=== PATIENT | female | born 1990 | race Caucasian/White ===

== ENCOUNTER 2022-03-17 09:22 | Outpatient (REF) | payer OTHER, SELFPAY ==
--- NOTE | ~2022-03-17 | XR_ITS ---
EXAMINATION: XR CHEST CLINICAL INFORMATION: Obesity COMPARISON: None TECHNIQUE: 2 views of the chest were obtained. FINDINGS: The cardiac and mediastinal contours are normal. The lungs are clear. There is no pleural effusion or pneumothorax. There are degenerative changes of the spine. XR/XR chest 2V IMPRESSION: No evidence for acute disease in the chest.
--- NOTE | 2022-03-17 09:29 | ECG_ITS ---
Test Reason : morbid obesity Blood Pressure : / mmHG Vent. Rate : 076 BPM Atrial Rate : 076 BPM P-R Int : 146 ms QRS Dur : 104 ms QT Int : 392 ms P-R-T Axes : 029 -04 022 degrees QTc Int : 441 ms Normal sinus rhythm Incomplete right bundle branch block Borderline ECG No previous ECGs available Referred By: Huy Crump Electronically Signed By:Fredy Dinh
[2022-03-17 09:50] LABS: MANUAL DIFF FLAG NO
[2022-03-17 10:29] LABS: Basophils Absolute Auto 0.1 X10*3/uL (0.0-0.2); Basophils Percent Auto 0.6 % (0-2); Eosinophils Absolute Auto 0.2 X10*3/uL (0.0-0.4); Eosinophils Percent Auto 2.4 % (0-4); Hematocrit 39.7 % (37.0-47.0); Hemoglobin 13.2 g/dl (12.0-16.0); Imm Gran Abs Auto 0.03 X10*3/uL (0.00-0.03); Imm Gran Pct Auto 0.4 % (0.0-0.4); Lymphocytes Absolute Auto 2.3 X10*3/uL (1.2-4.9); Mean Corpuscular HGB Conc 33.2 g/dl (31.0-35.0); Mean Corpuscular Hemoglobin 30.3 pg (27.0-33.0); Mean Corpuscular Volume 91.3 fL (80.0-98.0); Mean Platelet Volume 11.2 fL (9.4-12.3); Monocytes Absolute Auto 0.5 X10*3/uL (0.1-1.2); Monocytes Percent Auto 6.5 % (2-11); Neutrophils Percent Auto 62.1 % (45-73); Platelet Count 243 X10*3/uL (160-400); Red Blood Count 4.35 X10*6/uL (4.20-5.50); Red Cell Distribution Width 11.6 % (11.0-16.0)
[2022-03-17 10:37] LABS: Estimated Average Glucose 100 mg/dL; Hemoglobin A1c % 5.1 %
[2022-03-17 12:28] LABS: Folate 9.2 ng/mL (> or = 4.0); Vitamin B12 413 pg/mL (200-900)
[2022-03-17 12:42] LABS: Alanine Aminotransferase 32 U/L (0-31); Albumin Level 4.2 g/dL (3.5-5.0); Alkaline Phosphatase 56 U/L (39-117); Aspartate Amino Transferase 25 U/L (5-31); Bilirubin Total 0.5 mg/dL (0.0-1.0); Blood Urea Nitrogen 15 mg/dL (9-16); C Reactive Protein 0.31 mg/dL (< or = 0.50); Calcium 8.8 mg/dL (8.4-10.2); Cholesterol 147 mg/dL; Estimated Glomerular Filt Rate > 60; Ferritin 138 ng/mL (10-122); Glucose Random 87 mg/dL (60-115); HDL Cholesterol 49 mg/dL; Insulin 14 uU/mL (2-29); Iron 96 mcg/dL (30-160); LDL Cholesterol Calculated 83 mg/dl; Percent Iron Saturation 33 % (15-50); TSH reflex Free T4 1.01 uIU/mL (0.32-4.0); Total Iron Binding Capacity 290 mcg/dL (228-428); Total Protein 7.2 g/dL (6.5-8.0); Triglycerides 75 mg/dL; Unsaturated Iron Binding 194 ug/dL; Vitamin D 25-OH Total 27.2 ng/mL (>30)
[2022-03-17 13:24] LABS: Anion Gap 15 (12-20); Carbon Dioxide 25 mmol/L (22-29); Chloride 104 mmol/L (96-108); Potassium 4.6 mmol/L (3.3-5.1); Sodium 139 mmol/L (135-145)
[2022-03-19 15:39] LABS: PTHI 100 pg/mL (16-77)
[2022-03-22 15:59] LABS: Vitamin A 54 mcg/dL (38-98); Vitamin B1 15 nmol/L (8-30)
[2022-03-22 17:53] LABS: Zinc 83 mcg/dL (60-130)
== END 2022-03-17 09:23 | disposition home or self-care (01) ==
LOC: HO.LAB 09:22
PROVIDERS: PCP Internal Medicine; Visit Provider Surgery
DX: E66.01 Morbid (severe) obesity due to excess calories (principal)
CPT/HCPCS: 36415; 71046; 80053; 80061; 82306; 82607; 82728; 82746; 83036; 83525; 83540; 83970; 84425; 84443; 84590; 84630; 85025; 86140; 93005

== ENCOUNTER 2022-03-31 10:20 | Outpatient (REF) | payer OTHER, SELFPAY ==
[2022-03-31 14:11] LABS: H Pylori Breath Test Negative (Negative)
== END 2022-03-31 10:21 | disposition home or self-care (01) ==
LOC: HO.LNP 10:20
PROVIDERS: Visit Provider Surgery
DX: E66.01 Morbid (severe) obesity due to excess calories (principal)
CPT/HCPCS: 83013

== ENCOUNTER → 2022-04-06 07:55 | Outpatient (REF) | payer OTHER, SELFPAY ==
--- NOTE | 2022-04-06 08:00 | CA_ITS ---
Acquisition Time: 2022-04-06 08:12:11 Total Exercise Time: 00:07:39 Test Indications: ABN EKG Medications: SEE CHART Protocol: WANDA Max HR: 171 BPM 90% of Pred: 189 BPM Max BP: 166/070 mmHG Max Work Load: 9.5 METS Exercise stress test withexercise 7 min 39 sec of Wanda protocol, achieving 90% MPHR, 9.5 METs, with mild sob, no chest discomfort, without arrythmia, with normotensive response to exercise, without EKG changes meeting criteria for ischemia. Test reviewed with Dr Dinh. Referred By: Huy Crump Overread By: JANNETH MONTES
== END ==
LOC: HO.CARD 07:55
PROVIDERS: PCP Internal Medicine; Visit Provider Surgery
DX: Z01.818 Encounter for other preprocedural examination (principal); R06.02 Shortness of breath; R94.31 Abnormal electrocardiogram [ECG] [EKG]
CPT/HCPCS: 93017

== ENCOUNTER → 2022-04-13 15:32 | Outpatient (BNVA) | payer OTHER, SELFPAY | PROVIDERS: PCP Internal Medicine; Visit Provider Counselor Mental Health | DX: F50.81 Binge eating disorder (principal); E66.01 Morbid (severe) obesity due to excess calories | CPT/HCPCS: 90791 ==

== ENCOUNTER → 2022-04-14 09:23 | Outpatient (BNVA) | payer OTHER, SELFPAY | PROVIDERS: PCP Internal Medicine; Visit Provider Dietitian, Registered | DX: E66.01 Morbid (severe) obesity due to excess calories (principal) | CPT/HCPCS: 97802 ==

== ENCOUNTER 2022-04-28 07:52 | Outpatient (REF) | payer OTHER, SELFPAY ==
--- NOTE | ~2022-04-28 | US_ITS ---
EXAMINATION: US COMPLETE ABDOMEN WITH LIVER ELASTOGRAPHY CLINICAL INFORMATION: Obesity. COMPARISON: None. TECHNIQUE: Real-time imaging of the abdominal viscera. Noninvasive ultrasound liver fibrosis assessment is performed using Selene ElastPQ point quantification shear wave elastography (2D-SWE) with a C5-2 MHz transducer. Multiple elastography samples are obtained. Imaging is technically limited. FINDINGS: PANCREAS: Largely obscured by overlapping bowel gas. ABDOMINAL AORTA: The proximal, middle, and distal aortic segments are normal in caliber. INFERIOR VENA CAVA: Visualized portions are normal. LIVER: Normal. The liver demonstrates normal size, contour and echogenicity. No focal lesion or intrahepatic biliary duct dilatation. The right lobe measures 14.9 cm in length. The left lobe measures 10.9 cm in length. Portal flow is towards the liver (hepatopetal). Shear wave liver elastography median stiffness is 1.25 m/s (reference: normal median stiffness is 1.3 m/s or less). IQR/median stiffness to assess sampling precision is 0.24 (reference: good quality data set is IQR/median stiffness of 0.15 or less). GALLBLADDER: Normal. The gallbladder is physiologically distended without evidence of stones, sludge, polyps, wall thickening or pericholecystic fluid. COMMON BILE DUCT: Normal in caliber measuring 0.3 cm in diameter. RIGHT KIDNEY: Normal. No hydronephrosis. No renal calculi or focal parenchymal lesions. The kidney measures 9.8 cm in maximum dimension. LEFT KIDNEY: Normal. No hydronephrosis. No renal calculi or focal parenchymal lesions. The kidney measures 11.0 cm in maximum dimension. SPLEEN: Normal. The spleen measures 11.9 cm in maximum dimension. FREE FLUID: None. US/US abdomen comp w elastography IMPRESSION: 1. Liver elastography: Although measurements suggest a high probability of normal liver stiffness, there is statistical variability of the sampling which decreases accuracy. 2. Technically limited ultrasound examination of the pancreas. REFERENCE: Society of Radiologists in Ultrasound Liver Stiffness Thresholds (2020): LIVER STIFFNESS THRESHOLDS: *Liver Stiffness equal or less than 1.3 m/s: High probability of being normal. *Liver Stiffness less than 1.7 m/s: In the absence of other known clinical signs, rules out compensated advanced chronic liver disease. *Liver Stiffness 1.7-2.1 m/s: Suggestive of compensated advanced chronic liver disease but need further test for confirmation. *Liver Stiffness over 2.1 m/s: Rules in compensated advanced chronic liver disease. *Liver Stiffness over 2.4 m/s: Suggestive of clinically significant portal hypertension. QUALITY OF DATA SET: *IQR/Median value equal or less than 0.15 implies a quality data set. *IQR/Median value over 0.15 implies a poor quality data set. SIGNIFICANT CHANGE FROM PRIOR EXAM: Significant change if liver stiffness measurement is 10% or greater from prior exam. OTHER CONSIDERATIONS: The stage of liver fibrosis may be overestimated in the setting of acute hepatitis, liver inflammation, elevated liver function tests, hepatic vascular congestion, obstructive cholestasis, non-fasting state, and infiltrative diseases such as amyloidosis and lymphoma. In some patients with NAFLD, the liver stiffness thresholds for compensated advanced chronic liver disease may be lower. In causes other than viral hepatitis and NAFLD, liver stiffness thresholds are not well established.
== END 2022-04-28 07:53 | disposition home or self-care (01) ==
LOC: HO.US 07:52
PROVIDERS: Visit Provider Surgery
DX: E66.01 Morbid (severe) obesity due to excess calories (principal)
CPT/HCPCS: 76705; 76981

== ENCOUNTER 2022-05-11 08:24 | Outpatient (REF) | payer OTHER, SELFPAY ==
--- NOTE | ~2022-05-11 | FL_ITS ---
EXAMINATION: XR FLUOROSCOPY UPPER GI WITH AIR CLINICAL INFORMATION: Morbid obesity due to excess calories COMPARISON: None TECHNIQUE: Fluoroscopic assessment of the upper GI tract was performed in various upright and supine/prone obliquities utilizing thin and thick high density barium contrast material and effervescent granules. FINDINGS: The esophagus was normal in course, caliber, and contour. There was normal distensibility with no fixed segment of narrowing. No focal mucosal abnormality was identified. No significant esophageal dysmotility was observed. Contrast passed freely across the gastroesophageal junction into the stomach. No significant hiatal hernia. There was normal distensibility of the stomach with no focal abnormality identified. There was prompt gastric emptying into the duodenum which demonstrated a normal appearance. No gastroesophageal reflux was observed. FLUOROSCOPY TIME: 1.1 minutes DOSE AREA PRODUCT: 22.970 Gy-cm2 (del cid-centimeter squared) FL/FL upper GI w air IMPRESSION: Normal upper GI examination.
== END 2022-05-11 08:25 | disposition home or self-care (01) ==
LOC: HO.XRAY 08:24
PROVIDERS: Visit Provider Surgery
DX: E66.01 Morbid (severe) obesity due to excess calories (principal)
CPT/HCPCS: 74246

== ENCOUNTER → 2022-05-17 08:11 | Outpatient (BNVA) | payer OTHER, SELFPAY | PROVIDERS: PCP Internal Medicine; Visit Provider Surgery | DX: Z13.89 Encounter for screening for other disorder (principal) ==

== ENCOUNTER → 2022-05-19 12:53 | Outpatient (BNVA) | payer OTHER, SELFPAY | PROVIDERS: PCP Internal Medicine; Visit Provider Surgery | DX: Z13.89 Encounter for screening for other disorder (principal) ==

== ENCOUNTER → 2022-05-31 13:09 | Outpatient (BNVA) | payer OTHER, SELFPAY | PROVIDERS: PCP Internal Medicine; Visit Provider Physician Assistant Surgical | DX: Z13.89 Encounter for screening for other disorder (principal) ==

== ENCOUNTER 2022-06-01 07:05 | Inpatient (IN) | payer OTHER, SELFPAY ==
[2022-05-18 10:05] VITALS: BMI 42.5
[2022-05-23 08:50] LABS: MANUAL DIFF FLAG NO
[2022-05-23 09:34] LABS: Basophils Absolute Auto 0.1 X10*3/uL (0.0-0.2); Eosinophils Absolute Auto 0.1 X10*3/uL (0.0-0.4); Eosinophils Percent Auto 1.7 % (0-4); Hematocrit 39.4 % (37.0-47.0); Hemoglobin 13.5 g/dl (12.0-16.0); Imm Gran Abs Auto 0.02 X10*3/uL (0.00-0.03); Imm Gran Pct Auto 0.4 % (0.0-0.4); Lymphocytes Absolute Auto 1.3 X10*3/uL (1.2-4.9); Lymphocytes Percent Auto 25.1 % (20-40); Mean Corpuscular HGB Conc 34.3 g/dl (31.0-35.0); Mean Corpuscular Hemoglobin 31.6 pg (27.0-33.0); Mean Corpuscular Volume 92.3 fL (80.0-98.0); Mean Platelet Volume 12.1 fL (9.4-12.3); Monocytes Absolute Auto 0.5 X10*3/uL (0.1-1.2); Monocytes Percent Auto 8.7 % (2-11); Neutrophils Absolute Auto 3.3 x10*3/uL (2.0-8.3); Neutrophils Percent Auto 63.1 % (45-73); Platelet Count 199 X10*3/uL (160-400); Red Blood Count 4.27 X10*6/uL (4.20-5.50); Red Cell Distribution Width 12.7 % (11.0-16.0); White Blood Count 5.2 X10*3/uL (4.8-10.8)
[2022-05-23 09:40] LABS: Prothrombin Time 11.9 SEC (10.0-13.1)
[2022-05-23 09:43] LABS: Partial Thromboplastin Time 30.8 SEC (26.0-36.4)
[2022-05-23 10:18] LABS: Estimated Average Glucose 88 mg/dL; Hemoglobin A1c % 4.7 %
[2022-05-23 10:48] LABS: Alanine Aminotransferase 42 U/L (0-31); Albumin Level 4.3 g/dL (3.5-5.0); Alkaline Phosphatase 45 U/L (39-117); Anion Gap 20 (12-20); Aspartate Amino Transferase 31 U/L (5-31); Bilirubin Total 1.1 mg/dL (0.0-1.0); Blood Urea Nitrogen 14 mg/dL (9-16); C Reactive Protein 0.58 mg/dL (< or = 0.50); Calcium 9.5 mg/dL (8.4-10.2); Carbon Dioxide 20 mmol/L (22-29); Chloride 106 mmol/L (96-108); Cholesterol 141 mg/dL; Estimated Glomerular Filt Rate > 60; Glucose Random 80 mg/dL (60-115); HDL Cholesterol 39 mg/dL; LDL Cholesterol Calculated 89 mg/dl; Potassium 5.1 mmol/L (3.3-5.1); Sodium 141 mmol/L (135-145); Total Protein 7.2 g/dL (6.5-8.0); Triglycerides 65 mg/dL
[2022-05-23 11:00] LABS: Insulin 6 uU/mL (2-29)
--- NOTE | 2022-05-26 23:06 | MHC.SHP ---
Pre-Procedural Eval Section A Date of Service: 05/26/22 The patient is an INPATIENT: Yes The History & Physical has been completed within 30 days and I have reviewed it.: Yes Section B Chief Complaint: morbid obesity Relevant Family History (Specify if Yes): No Relevant Social History: None Present Medications: None Medical History: No relevant PMH History of Previous Operations: No relevant previous surgery Allergies: Allergies Allergy/AdvReac Type Severity Reaction Status Date / Time shellfish derived Allergy Mild HIVES Verified 05/18/22 10:11 Review of Systems Sugical H&P ROS: Negative: Constitution, Cardiovascular, Respiratory, Neurological, Psychiatric, Hem-Onc, Allergic/Immunologic, Gastrointestinal, Genitourinary, Musculoskeletal, Integumentary, Endocrine and Eyes/Ears/Nose/Throat Exam Surgical H&P Exam: Normal: HEENT, Normal: Heart, Normal: Lungs, Normal: Extremities, Normal: Abdomen, Normal: Skin and Normal: Neurological Plan Diagnosis/Plan: Unchanged I have reviewed the history and physical and performed a pertinent physical examination on my patient. No changes have occurred unless specified. Time Spent With Patient Time: Total time managing care of this patient today ____ minutes.
[2022-05-31 13:30] LABS: COVID-19 Test Negative (Negative); IDNOW Serial# 9DB6401D
[2022-06-01] VITALS (22 sets, daily range): BP systolic 126–168; BP diastolic 76–89; PULSE 68–92; RESP 16–20; TEMP 36.3–37; O2SAT 93–100
[2022-06-01 07:17] LABS: UPreg QC Valid YES; Urine Pregnancy NEGATIVE (NEGATIVE)
[2022-06-01] MEDS: Lactated Ringers 1,000 ML 999 ML IV (07:45)
--- NOTE | 2022-06-01 07:52 | HO.ANESPROP2 ---
HPI - Anesthesia Eval Consult details Narrative: 31 yo female patient for EGD, Laparoscopic sleeve gastrectomy, possible diaphragmatic hernia repair, possible ventral hernia repair, possible open PMFSH Active Problems Active Problems: All Active Problems (Updated 06/01/22 @ 08:34 by Tara Torres MD) Binge-eating disorder, in partial remission, mild (Acute) Vitamin B12 deficiency (Acute) Vitamin D deficiency (Acute) Arthritis (Acute) Morbid obesity BMI 42.6 Denies SONNY Past Medical History Medical History Arthritis Morbid obesity Family History Family History Mother Diabetes Thyroid disease Father Hypertension Sister Hypertension Thyroid disease PCOS (polycystic ovarian syndrome) Family history of problems with anesthesia: No Surgical History Surgical History No pertinent past surgical history History of Problems with Anesthesia: No Social History Social History Are you a primary resident care manager rn to a significant other at home: No Do you presently have visiting nurse or other home services: No Alcohol intake: current Alcohol intake frequency: holidays/special occasions only Patient Tobacco Use Status: Never used Tobacco Second Hand Smoke Exposure: No Use of substances other than those prescribed or required for medical reasons: No Have you been hit, kicked, punched, or otherwise hurt by someone within the past year? If so, by whom?: No Are you DNR?: No Advance Directives: No Advance Directives Information Provided: Yes (Info mailed w/ pre-op instructions) Advance Directives on File: No Recently lost weight without trying: No How much weight loss: 34pounds or more Eating poorly because of decreased appetite: No Nutrition screen score: 4 Nutrition Risks: No Nutritional Risk Patient : No FDLMP: none : No Poor oral hygiene: No Meds Allergies Allergy/AdvReac Type Severity Reaction Status Date / Time shellfish derived Allergy Mild HIVES Verified 06/01/22 07:18 Active Medications: Current Medications Lactated Ringer's (Lr) 1,000 mls @ 999 mls/hr IV .Q1H1M JOSE M Stop: 06/01/22 09:15 Last Admin: 06/01/22 07:45 Dose: 999 mls/hr Home Medications Medication Instructions Recorded Confirmed Last Taken Type IUD 1 dose vaginal USEASDIRECTD 03/14/22 06/01/22 Unknown History multivitamin 1 tab PO DAILY 05/31/22 06/01/22 05/31/22 History Exam Exam Date and Time: June 01, 2022 0752 Height,Weight and Vital Signs: Height 5 ft 7 in Weight 123.377 kg Last Vital Signs Temp 98.0 F 06/01/22 07:15 Pulse 68 06/01/22 07:15 Resp 16 06/01/22 07:15 BP 145/83 H 06/01/22 07:15 Pulse Ox 99 06/01/22 07:15 O2 Del Method 06/01/22 07:15 Pertinent Lab Results Pertinent Lab Results: Laboratory Tests 05/23/22 05/23/22 05/23/22 08:42 08:48 08:48 WBC 5.2 RBC 4.27 Hgb 13.5 Hct 39.4 MCV 92.3 MCH 31.6 MCHC 34.3 RDW 12.7 Plt Count 199 MPV 12.1 Immature Gran % (Auto) 0.4 Neut % (Auto) 63.1 Lymph % (Auto) 25.1 [place] % (Auto) 8.7 Eos % (Auto) 1.7 Baso % (Auto) 1.0 Lymph # (Auto) 1.3 [place] # (Auto) 0.5 Eos # (Auto) 0.1 Baso # (Auto) 0.1 Abs Immat Gran (auto) 0.02 Absolute Neuts (auto) 3.3 Absolute Nucleated RBC 0.000 Nucleated RBC % (auto) 0.0 PT 11.9 INR 1.0 APTT 30.8 Sodium Potassium Chloride Carbon Dioxide Anion Gap BUN Creatinine Estim Creat Clear Calc Estimated GFR Random Glucose Estimat Average Glucose Hemoglobin A1c % Insulin Level Calcium Total Bilirubin AST ALT Alkaline Phosphatase C-Reactive Protein Total Protein Albumin Triglycerides Cholesterol LDL Cholesterol, Calc HDL Cholesterol TSH Urine Test COVID-19 (KATIE) COVID-19 Clin Com Blood Type B Positive Antibody Screen NEGATIVE 05/23/22 05/23/22 05/31/22 08:48 08:48 13:00 WBC RBC Hgb Hct MCV MCH MCHC RDW Plt Count MPV Immature Gran % (Auto) Neut % (Auto) Lymph % (Auto) [place] % (Auto) Eos % (Auto) Baso % (Auto) Lymph # (Auto) [place] # (Auto) Eos # (Auto) Baso # (Auto) Abs Immat Gran (auto) Absolute Neuts (auto) Absolute Nucleated RBC Nucleated RBC % (auto) PT INR APTT Sodium 141 Potassium 5.1 Chloride 106 Carbon Dioxide 20 L Anion Gap 20 BUN 14 Creatinine 0.74 Estim Creat Clear Calc 150.0 Estimated GFR > 60 Random Glucose 80 Estimat Average Glucose 88 Hemoglobin A1c % 4.7 Insulin Level 6 Calcium 9.5 D Total Bilirubin 1.1 H AST 31 ALT 42 H Alkaline Phosphatase 45 C-Reactive Protein 0.58 H Total Protein 7.2 Albumin 4.3 Triglycerides 65 Cholesterol 141 LDL Cholesterol, Calc 89 HDL Cholesterol 39 TSH 1.60 Urine Test COVID-19 (KATIE) Negative [facility] See Note Blood Type Antibody Screen 06/01/22 07:05 WBC RBC Hgb Hct MCV MCH MCHC RDW Plt Count MPV Immature Gran % (Auto) Neut % (Auto) Lymph % (Auto) [place] % (Auto) Eos % (Auto) Baso % (Auto) Lymph # (Auto) [place] # (Auto) Eos # (Auto) Baso # (Auto) Abs Immat Gran (auto) Absolute Neuts (auto) Absolute Nucleated RBC Nucleated RBC % (auto) PT INR APTT Sodium Potassium Chloride Carbon Dioxide Anion Gap BUN Creatinine Estim Creat Clear Calc Estimated GFR Random Glucose Estimat Average Glucose Hemoglobin A1c % Insulin Level Calcium Total Bilirubin AST ALT Alkaline Phosphatase C-Reactive Protein Total Protein Albumin Triglycerides Cholesterol LDL Cholesterol, Calc HDL Cholesterol TSH Urine Test NEGATIVE COVID-19 (KATIE) COVID-[place] REO Blood Type Antibody Screen Airway Mallampati Class: II TM Dist: >3cm Neck ROM: Full Loose/Missing/Broken Teeth: Yes (Missing 1 tooth top left back) Heart: RRR Lungs: CTAB Assessment and Plan Assessment Anesthesia Assessment: Anesthesia Plan Discussed and Chart Reviewed Final Anesthetic Review Family History of Problems with Anesthesia: No History of Problems with Anesthesia: No NPO: Yes ASA Class: III Final Preanesthetic Review: No Changes in Pt Med Stat, Meds/Allgs Chart Reviewed, Consent Obtained/Reviewed and Anes Risks/Benef Reviewed Patient Risk: Intermediate Procedure Risk: Intermediate Assessment/Block/Sedation in SS: Assess/Block/Sedation-SS Anesthetic Plan Anesthetic Plan: GA Disposition: Standard PACU and Inp. Admit - Standard Bed
[2022-06-01] MEDS: Lactated Ringers 1,000 ML 100 ML IVCONT ×3 (08:12→21:34)
--- NOTE | 2022-06-01 09:18 | PM.OP ---
Brief Operative Note Date of Service: 06/01/22 Pre-op diagnosis: morbid obesity with comorbidities (see below) Post-op diagnosis: same Procedure: INITIAL PATIENT BMI ON PRESENTATION AT OUR OFFICE: 48.4 kg/m2 LAST BMI BEFORE SURGERY: 42.1 kg/m2 COMORBIDITIES: DJD ?The patient presented to the Weight Management Program with significant obesity that was negatively impacting the patient's comorbidities as listed above.? The program is a phased program with a special focus on preoperative medical weight management to promote substantial weight loss and prepare the patients for the second phase of the program: bariatric surgery. The patient participated in an intensive weekly lifestyle ?intervention and exercise program during which the patient ?has lost between the initial office visit and the last preoperative visit 40.4 lbs, or 13.07% of initial actual body weight. It was deemed appropriate for the patient to now have bariatric surgery. In light of the current Covid-19 pandemic and the well documented strong association of obesity and increased risk of worse outcomes if infected with Covid-19 (REFERENCES:https://pubmed.ncbi.nlm.nih.gov/67819438/,?https://pubmed.ncbi.nlm.nih.gov/76132843/), any delay in undergoing bariatric surgery may lead to the patient's worsening health condition and increased?risk of more severe Covid-19 disease if infected. In addition a recent?study from [facility] published in [employer] on 04/11/2021 ([email or web address]) found that, among patients with obesity, substantial weight loss achieved with surgery was associated with improved outcomes of COVID-19 infection. The findings suggest that obesity can be a modifiable risk factor for the severity of COVID-19 infection. In addition, the patient met the BMI-criteria for bariatric surgery based on the BMI on initial presentation. The patient should not be penalized for achieving such weight loss because ?it is not sustainable long-term without surgical intervention and it was achieved in preparation for bariatric surgery ?under my direction and based on my published research ([email or web address] and?https://www.soard.org/article/[email or web address](49)14013-X/pdf) ?that a 10% preoperative weight loss improves long-term weight loss after surgery and reduces perioperative complications.? Insurance carriers such as [facility] have endorsed my recommendations ?and have included in their policies criteria to include a 10% preoperative weight loss requirement. PROCEDURE: Esophago-gastroscopy, laparoscopic lysis of adhesions, laparoscopic sleeve gastrectomy and laparoscopic gastropexy INDICATIONS: This is a 31 year-old female who was electively scheduled for laparoscopic, possibly open sleeve gastrectomy. The risks and complications of the procedure were discussed with the patient in advance, particularly the possibility of ; pulmonary embolism; staple line leak; bleeding; GERD; cardiac, pulmonary, or renal complications; as well as long-term problems such as insufficient weight loss, vitamin deficiency, strictures, or ulcers. The patient understood all the risks, and was in agreement to proceed with surgery. DESCRIPTION OF PROCEDURE: After informed consent was obtained from the patient, the patient was given preoperative antibiotics, and was transferred to the operating room. After successful induction of general anesthesia, pneumatic compression devices were placed on both lower extremities. An upper endoscopy was performed next. The oropharynx and esophagus appeared to be within normal limits. There was no diaphragmatic hernia present consistent with the findings of the preoperative upper GI. The stomach was entered. Then after all fluid and air were suctioned and the stomach was fully decompressed, the scope was withdrawn and secured in the mid esophagus. The patient was then prepped and draped in the usual sterile manner, and abdominal access was established at the right upper quadrant with the Beny technique. A 12 mm blunt port was inserted, and the abdomen was insufflated with CO2 to a pressure of 15 mmHg. Under direct visualization, additional ports were placed, specifically two 5 mm Versi-step ports to the left upper quadrant, and a 5 mm Versi-Step port to the right upper quadrant. 1% lidocaine plain was used to infiltrate all port sites as well as all fascia defects. Using the EndoClose suture passer device, I placed a #1 Polysorb tie across the falciform ligament in order to retract it up against the abdominal wall and prevent injury of the ligament with our instruments during the procedure. Following that, the patient was placed in a steep reverse Trendelenburg position. An additional 5 mm port was placed to the right flank for the Mediflex retractor that was used to retract the left lobe of the liver. The gastro-esophageal fat pad was opened with the ultrasonic device (Thunderbeat, Olympus) and the anterior esophagus and hiatus were exposed. The angle of His was opened with the ultrasonic device the fundus of the stomach from any diaphragmatic and splenic attachments. I then opened the gastrocolic ligament between the transverse colon and the greater curvature of the stomach with the ultrasonic device to enter the lesser sac and facilitate the ligation of the short gastric vessels. I started at a mid-point along the greater curvature and using the Thunderbeat, all short gastric vessels were divided all the way to the angle of His until the left louisa was completely dissected at its entirety. I then divided the gastro-colic ligament distally to a distance of about 3-4 cm proximal to the pylorus. There were extensive congenital adhesions between the pancreas and posterior gastric wall. Those were lysed completely with the ultrasonic device. Adhesiolysis took approximately 45 min to complete. The stomach was then divided transversely with one Endo HIEN-45 purple, one HIEN-45 orange load and four HIEN-60 articulating orange loads using the AEON stapler and loads. Every effort was made that the gastric sleeve had a tubular shape and an even caliber throughout. Once the sleeve resection was completed, the staple line of the gastric sleeve was reinforced with Hemoclips. The resected stomach was retrieved without difficulty from the Beny port. A gastropexy was then performed in order to prevent postoperative GERD and partial gastric volvulus. Several interrupted 2.0 Surgidac sutures were placed between the sleeve's staple line and the previously divided greater omentum and gastro-colic ligament using the Endo-Stitch device. ?An upper endoscopy was performed. There was no narrowing at the GE junction. The scope was easily advanced all the way to the pylorus which was clearly visualized. There was no narrowing anywhere and the sleeve's caliber was even throughout. The sleeve's staple line was inspected and there was no evidence of ischemia, bleeding or dehiscence. At that point the gastroscope was withdrawn from the patient?s mouth while we were decompressing the bowel and the stomach from any remaining air. I looked into the lesser sac to see how the sleeve was situating and it was situating well. There was no bleeding from the staple line, spleen, or short gastric vessels. The Mediflex retractor was removed, and the undersurface of the liver was inspected and there was no bleeding. The patient was placed in supine position. I closed the fascial defect of the 12 mm port site with a figure of eight #1 Polysorb suture. Then 30cc of Ropivacaine plain with 10 mg of Dexamethasone were used to infiltrate the fascial closure as well as all skin incisions. A total of 7ml Zynrelef wasapplied in the Beny wound. At this point, the abdomen was deflated, all ports were removed under direct vision, and no bleeding was noted from any of the port sites. The skin incisions were irrigated with saline and were closed with 4-0 absorbable monofilament sutures. Steri-Strips and OpSites were used to cover all incisions. The patient was extubated and was transferred in stable condition to the recovery room for further care. I was present and performed all shelton parts of the procedure. Ms. Ma was the finance assistant. There were no residents to assist with this case. Malvin Crump MD, PhD, FACS Surgeon: Huy Crump MD Anesthesia: GETA, local and other (TAP block and 7ml Zynrelef) Was an Shoe Lining Fitter used for this Procedure?: No Shoe Lining Fitter: Yolanda Ma Estimated blood loss (mL): 10 IV fluids (mL): 2,500 Urine output (mL): 0 (No Brannon to record output) Pathology: other (Stomach) Condition: stable Disposition: PACU
--- NOTE | 2022-06-01 09:21 | PM.PNGS ---
Subjective Subjective Date of Service: 06/02/22 Interval history: Patient has mild incisional pain, but was able to ambulate and use the incentive spirometer. She is tolerating phase 1 bariatric diet Physical Exam Vital Signs: Vital Signs: Last Vital Signs Temp 98.0 F 06/01/22 07:15 Pulse 68 06/01/22 07:15 Resp 16 06/01/22 07:15 BP 145/83 H 06/01/22 07:15 Pulse Ox 99 06/01/22 07:15 O2 Del Method 06/01/22 07:15 BMI result Body Mass Index 42.5 GI: Inspection: Yes normal to inspection, Yes incision (clean, dry and intact) and Yes obesity Palpation (GI): Soft to palpation Extrem: Right lower extremity: normal to inspection (no calf tenderness) Left lower extremity: normal to inspection (no calf tenderness) Objective Data Active Medications Fentanyl (Fentanyl Citrate/Pf 100 Mcg/2 Ml Vial) 25 mcg IVPUSH Q5M PRN; Protocol PRN Reason: Pain, Moderate (Pain Scale 4-6 Hydromorphone HCl (Hydromorphone Hcl 0.5 Mg/0.5 Ml Syringe) 0.25 mg IVPUSH Q5M PRN; Protocol PRN Reason: Pain, Severe (Pain Scale 7-10) Lactated Ringer's (Lr) 1,000 mls @ 100 mls/hr IVCONT .Q10H JOSE M Last Admin: 06/01/22 08:12 Dose: 100 mls/hr Documented By: ANN Promethazine HCl 6.25 mg/ (Sodium Chloride) 50.25 mls @ 201 mls/hr IV ONCE PRN PRN Reason: Nausea and Vomiting Ondansetron HCl (Ondansetron Hcl 4 Mg/2 Ml Vial) 4 mg IVPUSH ONCE PRN PRN Reason: Nausea and Vomiting Labs 05/23/22 08:48 05/23/22 08:48 Labs: Laboratory Results - last 24 hr 05/31/22 06/01/22 13:00 07:05 Urine Test NEGATIVE COVID-19 (KATIE) Negative COVID-19 Clin Com See Note Procedures Date of Service Date of Service: 06/02/22 Progress Note: A&P Assessment and plan (1) Morbid obesity: Status: Acute Assessment and Plan: s/p laparoscopic sleeve gastrectomy, lysis of adhesions and gastropexy Doing well Check am labs. If OK, will discharge home? (2) Arthritis: Status: Acute (3) Status post sleeve gastrectomy: Status: Acute Time Spent With Patient Time: Total time managing care of this patient today ____ minutes. Quality Stroke Does the patient have a stroke diagnosis?: No VTE Prior VTE?: No VTE Risk Level:: Surgical - moderate VTE Device Contraindication: N/A - Device Ordered VTE Drug Contraindication: Treatment Not Indicated
[2022-06-01] MEDS: Metoclopramide HCl 10 MG/2 ML VIAL IVPUSH (12:22)
--- NOTE | 2022-06-01 12:22 | P.DS_ITS ---
DS: Providers Provider Date of Service: 06/02/22 Date of admission: 06/01/22 07:05 Primary care physician: Diomedes Stroud MD DS: Diagnosis Discharge Diagnosis (1) Morbid obesity: Status: Acute (2) Arthritis: Status: Acute (3) Status post sleeve gastrectomy: Status: Acute DS: Summary Hospital Course Hospital Course: ADMITTING DIAGNOSIS: morbid obesity,?arthritis DISCHARGE DIAGNOSIS: same, s/p laparoscopic sleeve gastrectomy and gastropexy PAST SURGICAL HISTORY:?n/a PROCEDURE: upper endoscopy, laparoscopic sleeve gastrectomy and repair of diaphragmatic hernia hernia DISCHARGE SUMMARY: History of Present Illness: The patient is a?31 year-old woman with a BMI of? ?48.4 ? kg/m2 and associated co-morbidities as described above. The patient had extensive work-up, lost? ?37 ? lbs preoperatively and was electively scheduled for laparoscopic, possible open sleeve gastrectomy and gastropexy. Risks and complications of the surgery were discussed with the patient in advance, particularly the possibility of , pulmonary embolism, anastomotic leak, bleeding, bowel injury, GERD, cardiac, renal or pulmonary complications. The patient understood all the risks and was in agreement with the surgical plan. Hospital Course: The patient underwent an uneventful laparoscopic sleeve gastrectomy with gastropexy on the day of admission. Postoperatively, the patient was transferred to the surgical floor. The patient received IV Acetaminophen and IV dilaudid for pain control. Patient was started on bariatric phase 1 diet POD #0. On postoperative day one, the patient was feeling well without nausea, vomiting, fevers, or tachycardia. The patient had some mild incisional pain and the abdomen was soft.? On the morning of postoperative day one, the patient was continued on 1 ounce of water or ice every half hour. During the day, the patient did fairly well, having some incisional pain, but able to ambulate adequately and to tolerate liquids well. Since the patient is doing well, we decided that the patient was ready to be discharged. The patient was given instructions to follow-up with me next week and to call my office for any fever over 101, persistent abdominal pain, nausea, vomiting, GERD, symptoms of DVT such as calf tenderness, or leg swelling, or pulmonary embolism such as chest pain or shortness of breath.? The patient was also instructed to drink 40-60 ounces of liquids per day using the 1-ounce cups. The patient had been given prescriptions for Tylenol for pain, Zofran prn for nausea, and pantoprazole and carafate previously. The patient was encouraged to ambulate and use the incentive spirometer. The patient was allowed to shower, but no baths, and encouraged to stay active at home. All of these instructions were given to the patient personally. All questions were answered and the patient understood all instructions, the instructions were also given to the patient in print. Time Spent with Patient Time attestation: Total time managing care of this patient today ____ minutes. Discharge coordination time: Less than 30 minutes Quality: Safe Use of Opioids Does Pt have an Active Cancer Diagnosis on the Problem List?: No Quality: Stroke Does the patient have a stroke diagnosis?: No Physical Exam Vital Signs: Vital Signs: Last Vital Signs Temp 98.0 F 06/01/22 07:15 Pulse 68 06/01/22 07:15 Resp 16 06/01/22 07:15 BP 145/83 H 06/01/22 07:15 Pulse Ox 99 06/01/22 07:15 O2 Del Method 06/01/22 07:15 BMI result Body Mass Index 42.5 DS: Data Data Completed and Pending Pending studies at discharge: Pending at discharge 06/01/22 10:53 Surgical [PTH] Routine Labs on day of discharge: Laboratory Results - last 24 hr 05/31/22 06/01/22 13:00 07:05 Urine Test NEGATIVE COVID-19 (KATIE) Negative COVID-19 Clin Com See Note Discharge Plan Discharge Anticipated Discharge Date/Time: 06/02/22 10:00 Patient Disposition: Home, Self-Care Discharge Diagnosis: s/p laparoscopic sleeve gastrectomy Referrals: Diomedes Stroud MD [Primary Care Provider] - 1 Week Discharge Medications: Continued pantoprazole 40 mg tablet,delayed release (DR/EC) 40 mg PO DAILY Qty: 30 2RF sucralfate 100 mg/mL suspension 10 ml PO BID Qty: 400 2RF ondansetron HCl 4 mg tablet 4 mg PO Q12H Qty: 20 0RF Rx Instructions: Only use if you have nausea as needed IUD 1 dose 1 dose vaginal USEASDIRECTD Discontinued multivitamin 1 tab 1 tab PO DAILY Discharge Orders: Discharge Order (Routine); Ordered 06/02/22 Ordered By: Huy Crump Activity on Discharge: No heavy lifting Stand Alone Forms: Patient Portal Discharge page Care Plan Goals: weightloss Health Concerns: morbid obesity Plan of Treatment: No tub baths, sex or returning to work until discussed at first post op appointment. No alcohol, tobacco or illegal drug use. Continue to use incentive spirometer hourly while awake. Walk in home for 5- 10 minutes every 2 hours during the first week. Wear abdominal binder with activity. Continue phase 1 diet and follow all meal plan instructions from your bariatric surgeon. Review bariatric handbook and call with any questions. Discharge Instructions 1. Please call your doctor or come back to the emergency room should any new symptoms arise. 2. Activity: abstain from alcohol,? limited stair climbing, no bending, no driving, no exercise, no illicit substances, no lifting, no sex, no tub bath, no work. 4. Diet: follow your bariatric surgeons recommendations for advancing diet. 5. Dressing Change/Wound Care: Your incisions are covered with waterproof dressings. You can shower with these and pat dry. Do not rub over dressings or incisions. If the area is tender, you may apply an ice pack for short intervals (no more than 20 minutes on, followed by at least 20 minutes off). Do not apply heat. Do not use creams, lotions, or topical antibiotics unless instructed to do so by your surgeon. 6. Call your doctor if: - Your temperature exceeds 101.5 F - You experience excessive pain or swelling - You have an unexpected reaction to medication - You have excessive bleeding - You experience continued vomiting/nausea - Your incision begins to separate - Your incision shows signs of infection such as increased redness, swelling, excessive pain, heat, or drainage (light blood or clear fluid is normal) General instructions: No lifting greater than 5 lbs for the next 4 weeks[address] within 24 hours of taking narcotic pain medications. If you do not move your bowels in the next 2 days, please take milk of magnesia over the counter. Please follow the post op diet and do not advance your diet until you are seen in the office in about 2 weeks. Please walk around your home every hour or two to prevent blood clots from forming in your legs. You do not need to wake from sleeping to walk. Please sleep in a bed or couch to prevent kinking at the hips and knees. Please take your incentive spirometer (your lung electrical electronics engineers) home with you and use it for the next few days to prevent pneumonias. You may shower, no hot tubs, baths or swimming pools. Please call the office with any questions or concerns such as increasing abdominal pain, fever, chills, shortness of breath, chest pain, leg pain or swelling, or redness or drainage from your incisions. Please make sure you are consuming 40-60 ounces of total fluids per day. Avoid all carbonation. Do not hesitate to contact the office with any questions at . The patient's medical history has been reviewed and they are considered low risk for post op DVT and therefore DVT prophylaxis is not considered necessary. Travel after surgery was reviewed. The patient has not disclosed any travel plans during the first 30 days after surgery and they have been advised that within the first 30 days after surgery any bus, plane, train or car travel over 2 hours in duration is contraindicated due to the possibility of developing blood clots from immobility. Any travel, needs to include periods of ambulation of 10 minutes in duration every 2 hours.? The patient was instructed to discuss any plans for travel during this period with their bariatric surgeon. Assessment: s/p laparoscopic sleeve gastrectomy Discharge Date/Time: 06/02/22 10:28
[2022-06-01] MEDS: Haloperidol Lactate 5 MG/ML VIAL 1 MG IVPUSH (12:52)
[2022-06-01 12:56] LABS: Hematocrit 40.3 % (37.0-47.0); Hemoglobin 13.4 g/dl (12.0-16.0)
[2022-06-01 13:24] LABS: Anion Gap 17 (12-20); Blood Urea Nitrogen 9 mg/dL (9-16); Calcium 8.8 mg/dL (8.4-10.2); Carbon Dioxide 19 mmol/L (22-29); Chloride 109 mmol/L (96-108); Creatinine Clr Calc Pharmacy 137.1; Estimated Glomerular Filt Rate > 60; Glucose Random 142 mg/dL (60-115); Sodium 141 mmol/L (135-145)
[2022-06-01] MEDS: Scopolamine 1.5 MG PATCH.TD.3 EAR-BEHIND (14:42)
[2022-06-01] MEDS: ceFAZolin Sodium/Dextrose,Iso 2 GM/50 ML PIGGYBACK IV (14:56)
[2022-06-01] MEDS: Famotidine/PF 20 MG/2 ML VIAL IVPUSH ×2 (14:57→21:17)
[2022-06-01] MEDS: ondansetron HCL 4 MG/2 ML VIAL IVPUSH (16:45)
[2022-06-01] MEDS: Acetaminophen 1,000 MG/100 ML PIGGYBACK 16.7 MG IV ×2 (16:46→21:16)
[2022-06-01] MEDS: Enalaprilat Dihydrate 1.25 MG/ML VIAL IVPUSH (21:16)
[2022-06-02] MEDS: ondansetron HCL 4 MG/2 ML VIAL IVPUSH ×2 (02:08→08:33)
[2022-06-02 02:15] VITALS: BP 118/56; PULSE 58; RESP 16; TEMP 36.8; O2SAT 97
[2022-06-02] MEDS: Acetaminophen 1,000 MG/100 ML PIGGYBACK 16.7 MG IV (04:06)
[2022-06-02 06:03] LABS: MANUAL DIFF FLAG NO
[2022-06-02 06:09] LABS: Basophils Percent Auto 0.1 % (0-2); Hematocrit 35.4 % (37.0-47.0); Hemoglobin 12.1 g/dl (12.0-16.0); Imm Gran Abs Auto 0.04 X10*3/uL (0.00-0.03); Imm Gran Pct Auto 0.4 % (0.0-0.4); Lymphocytes Absolute Auto 1.2 X10*3/uL (1.2-4.9); Lymphocytes Percent Auto 10.5 % (20-40); Mean Corpuscular HGB Conc 34.2 g/dl (31.0-35.0); Mean Corpuscular Hemoglobin 30.7 pg (27.0-33.0); Mean Corpuscular Volume 89.8 fL (80.0-98.0); Mean Platelet Volume 11.9 fL (9.4-12.3); Monocytes Percent Auto 8.5 % (2-11); Neutrophils Percent Auto 80.5 % (45-73); Platelet Count 154 X10*3/uL (160-400); Red Blood Count 3.94 X10*6/uL (4.20-5.50); Red Cell Distribution Width 12.3 % (11.0-16.0); White Blood Count 11.2 X10*3/uL (4.8-10.8)
[2022-06-02 06:26] LABS: Anion Gap 14 (12-20); Blood Urea Nitrogen 9 mg/dL (9-16); Calcium 8.6 mg/dL (8.4-10.2); Carbon Dioxide 21 mmol/L (22-29); Chloride 110 mmol/L (96-108); Creatinine Clr Calc Pharmacy 163.3; Estimated Glomerular Filt Rate > 60; Glucose Random 120 mg/dL (60-115); Potassium 4.1 mmol/L (3.3-5.1); Sodium 141 mmol/L (135-145)
[2022-06-02 07:31] VITALS: BP 133/75; PULSE 50; RESP 16; TEMP 36.2; O2SAT 96
--- NOTE | 2022-06-02 07:36 | HO.POSTANES ---
Post Anesthesia Evaluation Post Anesthesia Evaluation Vital Signs: 133/75, 50, 16, 97.1F, 96%RA Anesthesia: General Endotracheal-GETA Mental Status: Awake Nausea/Vomiting: Mild and Severe Hydration: Adequate Anesthesia-Related Issues: No Anes. Related Issues
[2022-06-02 08:22] VITALS: O2SAT 96
[2022-06-02] MEDS: 0.9 % Sodium Chloride Flush 3 ML SYRINGE IVFLUSH (08:33)
[2022-06-02] MEDS: Lactated Ringers 1,000 ML 100 ML IVCONT (08:33)
[2022-06-02] MEDS: Famotidine/PF 20 MG/2 ML VIAL IVPUSH (08:33)
--- NOTE | 2022-06-02 11:03 | MHC.CM.PN ---
pt dcd home no skilled servceis ordered by
== END 2022-06-02 10:28 | disposition home or self-care (01) | DRG 620 ==
LOC: HO.SSSA 12:22 → HO.S3 12:28
PROVIDERS: Anesthesiology; Physician Assistant Surgical; Admitting Provider Surgery; PCP Internal Medicine; Visit Provider Surgery
PROC: 0DB64Z3 Excision of Stomach, Percutaneous Endoscopic Approach, Vertical (ICD-10-PCS; CPT 43845; principal; 2022-06-01 09:00)
DX: E66.01 Morbid (severe) obesity due to excess calories (principal); Q43.3 Congenital malformations of intestinal fixation; M19.90 Unspecified osteoarthritis, unspecified site; Z20.822 Contact with and (suspected) exposure to COVID-19; Z68.41 Body mass index [BMI] 40.0-44.9, adult; Z97.5 Presence of (intrauterine) contraceptive device; Z79.899 Other long term (current) drug therapy
CPT/HCPCS: 36415; 80048; 80053; 80061; 81025; 83036; 83525; 84443; 85014; 85018; 85025; 85610; 85730; 86140; 86850; 86900; 86901; 87635; 88307; 88342; A4649; C9088; J0131; J0690; J1100; J1170; J2250; J2405; J2550; J2765; J2795; J3010

== ENCOUNTER → 2022-06-07 13:26 | Outpatient (BNVA) | payer OTHER, SELFPAY | PROVIDERS: PCP Internal Medicine; Visit Provider Physician Assistant Surgical | DX: Z13.89 Encounter for screening for other disorder (principal) ==

== ENCOUNTER → 2022-06-23 14:56 | Outpatient (BNVA) | payer OTHER, SELFPAY | PROVIDERS: PCP Internal Medicine; Visit Provider Dietitian, Registered | DX: E66.9 Obesity, unspecified (principal); Z68.38 Body mass index [BMI] 38.0-38.9, adult | CPT/HCPCS: 97803 ==

== ENCOUNTER → 2022-07-07 13:53 | Outpatient (BNVA) | payer OTHER, SELFPAY | PROVIDERS: PCP Internal Medicine; Visit Provider Dietitian, Registered | DX: E66.01 Morbid (severe) obesity due to excess calories (principal) | CPT/HCPCS: 97803 ==

== ENCOUNTER → 2022-07-19 14:47 | Outpatient (BNVA) | payer OTHER, SELFPAY | PROVIDERS: PCP Internal Medicine; Visit Provider Dietitian, Registered | DX: E66.9 Obesity, unspecified (principal); Z71.3 Dietary counseling and surveillance | CPT/HCPCS: 97803 ==

== ENCOUNTER → 2022-08-08 15:34 | Outpatient (BNVA) | payer OTHER, SELFPAY | PROVIDERS: PCP Internal Medicine; Visit Provider Dietitian, Registered | DX: E66.9 Obesity, unspecified (principal); Z68.34 Body mass index [BMI] 34.0-34.9, adult; Z71.3 Dietary counseling and surveillance | CPT/HCPCS: 97803 ==

== ENCOUNTER → 2022-08-31 14:26 | Outpatient (BNVA) | payer OTHER, SELFPAY | PROVIDERS: PCP Internal Medicine; Visit Provider Dietitian, Registered | DX: E66.9 Obesity, unspecified (principal); Z71.3 Dietary counseling and surveillance | CPT/HCPCS: 97803 ==

== ENCOUNTER → 2022-10-05 14:45 | Outpatient (BNVA) | payer OTHER, SELFPAY | PROVIDERS: PCP Internal Medicine; Visit Provider Dietitian, Registered | DX: E66.9 Obesity, unspecified (principal); Z68.31 Body mass index [BMI] 31.0-31.9, adult; Z98.84 Bariatric surgery status; Z71.3 Dietary counseling and surveillance | CPT/HCPCS: 97803 ==

== ENCOUNTER 2022-10-30 14:29 | Outpatient (AMB) | payer OTHER, SELFPAY ==
[2022-10-30 14:46] VITALS: BMI 29.9
--- NOTE | 2022-10-30 14:46 | MHC.AMNUTRGE ---
Intake VS Expanded 10/30/22 14:46 Height 5 ft 7 in Weight 191 lb BMI 29.9 Body Fat 44.4 Body Fat Percentage 23.2 Muscle Mass 139.4 Visceral Mass 3 Water Mass 105.2 BMR 1,968 Intake Visit Reasons: (OV) PO LSG 06/01/22 Mine Analyst Required: No Allergies shellfish derived Allergy (Mild, Verified 06/07/22 14:04) HIVES HPI Nutrition Presentation Details LSG with Dr. 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 We discussed BMI goals, but given her body composition, a BMI of 25 may not be realistic for her. Recommended we reassess weight goals at 7 months postop Reason for consult elevated BMI Diet Assmnt Details Patient is currently 5 MO postop and reports she is doing very well. No complaints 8am? 4in1 shake with 8oz lactaid milk 11am same shake? 2-4pm Fairlife shake 2oz protein, 2oz vegetable Reports no issues with food tolerance. Is listening to her body, avoiding sensation of fullness Exercise: 5x per week 45-1 hour treadmill, plus a class one other day. Plus added weight training 25-30 minutes daily. 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 No issues Pt notices rashes inner thighs, under arms and stomach due to excess skin rubbing together Dietary counseling reduction Diagnosis Nutrition problem #1 overweight/obesity As related to (etiology) #1 excess energy intake and physical inactivity As evidenced by (sign/symptom) #1 high BMI Monitoring/Goals Nutrition problem monitoring total energy intake, level of knowledge/skill, total PRO intake, total CHO intake, weight and oral fluids Outcome progress progressing Learning/Education Readiness to learn excellent Stages of change action Most Recent Diabetes Results: No Data to Display PFSH Medical History Arthritis Morbid obesity Surgical History No pertinent past surgical history Family History Mother Diabetes Thyroid disease Father Hypertension Sister Hypertension Thyroid disease PCOS (polycystic ovarian syndrome) Social History (Updated 06/07/22 @ 14:05 by JARROD Tejada) Are you a primary healthcare advisory services manager to a significant other at home: No Do you presently have visiting nurse or other home services: No Alcohol intake: former Patient Tobacco Use Status: Never used Tobacco Second Hand Smoke Exposure: No service: No Assessment & Plan Assessment & Plan (1) Overweight (BMI 25.0-29.9): Code(s): E66.3 - Overweight Patient Instructions: Patient is doing extremely well at 5 months postop. No changes made to nutrition plan as she is content with it. She will follow-up with PA for six-month in office appointment, then resume follow ups with me for 7 month appointment Coding Level of Care Code Nutr Indiv Subseq ([id number]) Diagnoses Overweight (BMI 25.0-29.9) E66.3 Time Spent (min) 20
== END 2022-10-30 15:01 | disposition home or self-care (01) ==
PROVIDERS: PCP Internal Medicine; Visit Provider Dietitian, Registered
DX: E66.3 Overweight (principal)

== ENCOUNTER → 2022-10-30 14:29 | Outpatient (BNVA) | payer OTHER, SELFPAY | PROVIDERS: PCP Internal Medicine; Visit Provider Dietitian, Registered | DX: E66.3 Overweight (principal); Z71.3 Dietary counseling and surveillance; Z98.84 Bariatric surgery status | CPT/HCPCS: 97803 ==

== ENCOUNTER 2022-11-22 09:52 | Outpatient (AMB) | payer OTHER, SELFPAY ==
--- NOTE | 2022-11-22 09:54 | MHC.OFFVISWM ---
Intake VS Expanded 11/22/22 10:00 Height 5 ft 7 in Weight 185 lb 6.4 oz BMI 29.0 BP 109/57 L Blood Pressure Location Rt brachial Blood Pressure Position Sitting Pulse 55 Pulse Source Pulse Oximeter Temp 97.0 F Temperature Source Tympanic Pulse Oximetry 99 Oxygen Delivery Method Room Air Body Fat 41.2 Body Fat Percentage 22.3 Free Fat Mass 144.0 Muscle Mass 136.6 Visceral Mass 3.0 Water Mass 103.2 BMR 1,924 Intake Visit Reasons: (OV) PO LS 06/01/22 Rack Washer Required: No Accompanied by: Self / Same As Patient Allergies shellfish derived Allergy (Mild, Verified 11/22/22 10:02) HIVES Medication List - Last Reconciled 11/22/22 by ABRAHAM Garcia clotrimazole 1% 1 appl topical BID [IUD 1 dose vaginal USEASDIRECTD] HPI HPI Comments History of Present Illness Details This?is a?31?yo female who is s/p LSG 06/01/2022. Presents for 6 month post op visit. Weight at last visit on 10/30/2022 was 191 pounds with a BMI of 29.9, weight today is 185.4 pounds, representing a 5.6 pound weight loss with a BMI today of 29.? No complaints of nausea, emesis, abdominal pain or reflux, or constipation. Present meal plan includes: 8am? 4in1 shake with 8oz lactaid milk 11am same shake? 2-4pm ?Fairlife shake 2.5oz protein, 2.5oz vegetable Exercise: 5x per week? 45-1 hour treadmill, plus a class one other day. Plus added weight training 25-30 minutes daily. Plus homeworks on the [employer] Did the patient ever have any of these conditions and are they resolved or still being treated? GERD: never SONNY:? never DM:? ?never HTN:? never Hyperlipidemia:?never Post op complications:? none Heartburn symptoms? none Score 0-5: 0=no symptoms, 1=noticeable but not bothersome (slight or occasional), 2=noticeable, bothersome but not daily, 3=bothersome and daily, 4=affects daily activities, 5=incapacitating, unable to do daily activities How bad is the heartburn: 0 Heartburn when lying down: 0 Heartburn when standing up: 0 Heartburn after meals: 0 Does heartburn change your diet: 0 Does heartburn wake you up from sleep: 0 Do you have difficulty swallowin Do you have pain with swallowin If you take medication for reflux, does this affect your daily life: 0 Total score: 0 Pt notices rashes inner thighs, under arms and stomach due to excess skin rubbing together. Has tried powders. Regarding arms, excess skin makes running very difficult because skin moves around a lot and limits her range of motion to exercise at full capacity. The excess skin is very uncomfortable when it moves around. COUNTS INCLUDE 234 BEDS AT THE [facility] Medical History Arthritis Morbid obesity Surgical History No pertinent past surgical history Family History Mother Diabetes Thyroid disease Father Hypertension Sister Hypertension Thyroid disease PCOS (polycystic ovarian syndrome) Social History Are you a primary healthcare advisory services manager to a significant other at home: No Do you presently have visiting nurse or other home services: No Alcohol intake: former Patient Tobacco Use Status: Never used Tobacco Second Hand Smoke Exposure: No service: No Physical Exam Vital Signs: Last Vital Signs Temp 97.0 F 11/22/22 10:00 Pulse 55 11/22/22 10:00 BP 109/57 L 11/22/22 10:00 Pulse Ox 99 11/22/22 10:00 Oxygen Delivery Method Room Air 11/22/22 10:00 BMI result Body Mass Index 29.0 Const General: cooperative, comfortable and no acute distress Orientation/consciousness: patient oriented x3 GI Other: soft, nontender, nondistended, incisions well healed, no hernia, no masses Neuro General: patient oriented x3 Assessment & Plan Assessment & Plan (1) Status post sleeve gastrectomy: Code(s): Z90.3 - Acquired absence of stomach [part of] (2) Overweight: Code(s): E66.3 - Overweight Plan Pt to continue same meal plan, exercise regimen. Labs ordered. Clotrimazole ointment ordered for ongoing rashes of excess skin. RTC 1 month for previously scheduled visit with RD. Patient is overweight and is not considered stable at this time. I spent a total of 30 minutes reviewing/updating records, examining the patient and counseling the patient on weight management as detailed above. Orders: Orders Vitamin B12 and Folate Today Z90.3 - Acquired absence of stomach [part of] Comprehensive Met. Panel Today Z90.3 - Acquired absence of stomach [part of] C Reactive Protein Today Z90.3 - Acquired absence of stomach [part of] Ferritin Today Z90.3 - Acquired absence of stomach [part of] Hemoglobin A1c Today Z90.3 - Acquired absence of stomach [part of] Insulin Today Z90.3 - Acquired absence of stomach [part of] IRON PROFILE Today Z90.3 - Acquired absence of stomach [part of] Lipid Panel Today Z90.3 - Acquired absence of stomach [part of] PTHI Today Z90.3 - Acquired absence of stomach [part of] TSH reflex Free T4 Today Z90.3 - Acquired absence of stomach [part of] Vitamin A Today Z90.3 - Acquired absence of stomach [part of] Vitamin B1 Today Z90.3 - Acquired absence of stomach [part of] Vitamin D 25-OH Total Today Z90.3 - Acquired absence of stomach [part of] Zinc Today Z90.3 - Acquired absence of stomach [part of] Complete Blood Count Auto Diff Today Z90.3 - Acquired absence of stomach [part of] Medications: New clotrimazole 1% 1 appl topical BID 45 grams 3RF Coding Level of Care Code Est Pt Level 4 (98021) Diagnoses Status post sleeve gastrectomy Z90.3 Overweight E66.3
[2022-11-22 10:00] VITALS: BP 109/57; PULSE 55; TEMP 36.1; O2SAT 99; BMI 29.0
== END 2022-11-22 10:39 | disposition home or self-care (01) ==
PROVIDERS: PCP Internal Medicine; Visit Provider Physician Assistant Surgical
DX: E66.3 Overweight (principal); Z68.29 Body mass index [BMI] 29.0-29.9, adult; Z90.3 Acquired absence of stomach [part of]; Z98.84 Bariatric surgery status
CPT/HCPCS: 99214

== ENCOUNTER → 2022-11-22 09:52 | Outpatient (BNVA) | payer OTHER, SELFPAY | PROVIDERS: PCP Internal Medicine; Visit Provider Physician Assistant Surgical ==

== ENCOUNTER 2022-12-19 07:54 | Outpatient (REF) | payer OTHER, SELFPAY ==
[2022-12-19 08:06] LABS: MANUAL DIFF FLAG NO
[2022-12-19 08:42] LABS: Basophils Percent Auto 0.6 % (0-2); Eosinophils Absolute Auto 0.1 X10*3/uL (0.0-0.4); Eosinophils Percent Auto 2.6 % (0-4); Hematocrit 35.4 % (37.0-47.0); Hemoglobin 11.9 g/dl (12.0-16.0); Imm Gran Abs Auto 0.01 X10*3/uL (0.00-0.03); Imm Gran Pct Auto 0.3 % (0.0-0.4); Lymphocytes Absolute Auto 1.5 X10*3/uL (1.2-4.9); Lymphocytes Percent Auto 43.5 % (20-40); Mean Corpuscular HGB Conc 33.6 g/dl (31.0-35.0); Mean Corpuscular Hemoglobin 32.4 pg (27.0-33.0); Mean Corpuscular Volume 96.5 fL (80.0-98.0); Mean Platelet Volume 12.1 fL (9.4-12.3); Monocytes Absolute Auto 0.3 X10*3/uL (0.1-1.2); Monocytes Percent Auto 8.2 % (2-11); Neutrophils Absolute Auto 1.6 x10*3/uL (2.0-8.3); Neutrophils Percent Auto 44.8 % (45-73); Platelet Count 136 X10*3/uL (160-400); Red Blood Count 3.67 X10*6/uL (4.20-5.50); Red Cell Distribution Width 13.2 % (11.0-16.0); White Blood Count 3.5 X10*3/uL (4.8-10.8)
[2022-12-19 08:51] LABS: Estimated Average Glucose 85 mg/dL; Hemoglobin A1c % 4.6 % (<6.0)
[2022-12-19 09:41] LABS: Alanine Aminotransferase 41 U/L (0-31); Albumin Level 4.2 g/dL (3.5-5.0); Alkaline Phosphatase 40 U/L (39-117); Anion Gap 11 (12-20); Aspartate Amino Transferase 39 U/L (5-31); Bilirubin Total 0.8 mg/dL (0.0-1.0); Blood Urea Nitrogen 16 mg/dL (9-16); C Reactive Protein 0.15 mg/dL (< or = 0.50); Calcium 9.6 mg/dL (8.4-10.2); Carbon Dioxide 28 mmol/L (22-29); Chloride 108 mmol/L (96-108); Cholesterol 136 mg/dL (<200); Estimated Glomerular Filt Rate > 60; Glucose Random 77 mg/dL (60-115); HDL Cholesterol 47 mg/dL (>40); Iron 83 mcg/dL (30-160); LDL Cholesterol Calculated 80 mg/dL (<100); Percent Iron Saturation 33 % (15-50); Potassium 4.4 mmol/L (3.3-5.1); Sodium 143 mmol/L (135-145); Total Iron Binding Capacity 249 mcg/dL (228-428); Total Protein 6.9 g/dL (6.5-8.0); Triglycerides 47 mg/dL (<150); Unsaturated Iron Binding 166 ug/dL
[2022-12-19 10:00] LABS: Ferritin 126 ng/mL (10-122); Insulin 2 uU/mL (2-29); TSH reflex Free T4 1.41 uIU/mL (0.32-4.0); Vitamin D 25-OH Total 131.6 ng/mL (>30)
[2022-12-19 10:23] LABS: Folate 17.1 ng/mL (> or = 4.0); Vitamin B12 800 pg/mL (200-900)
[2022-12-20 15:23] LABS: Calcium (PTHI) 9.3 mg/dL (8.6-10.2); PTHI 45 pg/mL (16-77)
[2022-12-22 14:13] LABS: Zinc 69 mcg/dL (60-130)
[2022-12-25 13:33] LABS: Vitamin B1 25 nmol/L (8-30)
[2022-12-26 03:38] LABS: Vitamin A 42 mcg/dL (38-98)
== END 2022-12-19 07:55 | disposition home or self-care (01) ==
LOC: HO.LAB 07:54
PROVIDERS: PCP Internal Medicine; Visit Provider Physician Assistant Surgical
DX: K91.2 Postsurgical malabsorption, not elsewhere classified (principal); Z90.3 Acquired absence of stomach [part of]
CPT/HCPCS: 36415; 80053; 80061; 82306; 82607; 82728; 82746; 83036; 83525; 83540; 83970; 84425; 84443; 84590; 84630; 85025; 86140

== ENCOUNTER → 2022-12-29 08:23 | Outpatient (BNVA) | payer OTHER, SELFPAY | PROVIDERS: PCP Internal Medicine; Visit Provider Dietitian, Registered | DX: E66.9 Obesity, unspecified (principal); Z68.27 Body mass index [BMI] 27.0-27.9, adult; Z98.84 Bariatric surgery status; Z71.3 Dietary counseling and surveillance | CPT/HCPCS: 97803 ==

== ENCOUNTER → 2023-03-01 09:44 | Outpatient (BNVA) | payer OTHER, SELFPAY | PROVIDERS: PCP Internal Medicine; Visit Provider Dietitian, Registered | DX: E66.01 Morbid (severe) obesity due to excess calories (principal); L98.7 Excessive and redundant skin and subcutaneous tissue; Z68.26 Body mass index [BMI] 26.0-26.9, adult; Z90.3 Acquired absence of stomach [part of] | CPT/HCPCS: 97803 ==

== ENCOUNTER 2023-03-30 11:46 | Outpatient (AMB) | payer OTHER, SELFPAY ==
--- NOTE | 2023-03-30 11:33 | MHC.AMNUTRGE ---
Intake Intake Visit Reasons: VIDEO PO LSG 06/01/22 Allergies shellfish derived Allergy (Mild, Verified 11/22/22 10:02) HIVES HPI Nutrition Presentation Details LSG with Dr. 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 is ready to maintain her weight now. body composition shows body fat in healthy range. 8am? eggs and peppers or ricotta cheese or english yogurt with fruit 11am chicken and veg 2-4pm fairThompson SCI shake 2-3oz protein, 2oz vegetable ,occasionally some sweeet potato when able to comfortable fit. Exercise: 5x per week 45-1 hour treadmill, plus a class one other day. Plus added weight training 25-30 minutes daily. Plus homework on the spin bike Ran 5 K - 10 min mile and felt so proud, followed by discouragement when she saw she didn't burn as many calories as she thought. Hydration: 60oz per day Added in 6-8oz of regular caffeine coffee Has been having carbonated seltzer every other day. No issues Pt notices rashes inner thighs, under arms and stomach due to excess skin rubbing together Diagnosis Nutrition problem #1 overweight/obesity As related to (etiology) #1 excess energy intake and physical inactivity As evidenced by (sign/symptom) #1 high BMI (resolving ) Monitoring/Goals Nutrition problem monitoring total energy intake, level of knowledge/skill, total PRO intake, total CHO intake, weight and oral fluids Outcome progress progressing Learning/Education Readiness to learn excellent Stages of change action Most Recent Diabetes Results: Cholesterol 136 mg/dL (<200) 12/19/22 HDL Cholesterol 47 mg/dL (>40) 12/19/22 Triglycerides 47 mg/dL (<150) 12/19/22 Creatinine 0.78 mg/dL (0.5-1.4) 12/19/22 Blood Urea Nitrogen 16 mg/dL (9-16) 12/19/22 Sodium 143 mmol/L (135-145) 12/19/22 Potassium 4.4 mmol/L (3.3-5.1) 12/19/22 Chloride 108 mmol/L (96-108) 12/19/22 Carbon Dioxide 28 mmol/L (22-29) 12/19/22 Calcium 9.6 mg/dL (8.4-10.2) 12/19/22 AST 39 U/L (5-31) H 12/19/22 ALT 41 U/L (0-31) H 12/19/22 Total Protein 6.9 g/dL (6.5-8.0) 12/19/22 Albumin 4.2 g/dL (3.5-5.0) 12/19/22 [facility] Medical History Arthritis Morbid obesity Surgical History No pertinent past surgical history Family History Mother Diabetes Thyroid disease Father Hypertension Sister Hypertension Thyroid disease PCOS (polycystic ovarian syndrome) Social History Are you a primary hospice home care coordinator to a significant other at home: No Do you presently have visiting nurse or other home services: No Alcohol intake: former Patient Tobacco Use Status: Never used Tobacco Second Hand Smoke Exposure: No service: No Assessment & Plan Assessment & Plan (1) Overweight: Code(s): E66.3 - Overweight Plan PA for annual routine appt. Encouraged mindful food choices around the holidays, but not restricting herself. Promoted a healthy relationship with exercise and taking the focus off calories. encouraged adding in small portions of carbs to meals Telehealth Telehealth Location of provider rendering services: practice address Location of patient: address on file Patient Identification confirmed using: Name, : Yes Telehealth method: video Patient verbally consented to treatment: Yes Patient verbally consented to billing insurance company: Yes Patient informed of any privacy concerns related to visit: Yes Minutes spent on Phone/Video with Pt.: 20 Coding Level of Care Code Nutr Indiv Subseq ([id number]) Diagnoses Overweight E66.3 Time Spent (min) 20
== END 2023-03-30 11:53 | disposition home or self-care (01) ==
LOC: HO.HBS 11:46
PROVIDERS: PCP Internal Medicine; Visit Provider Dietitian, Registered
DX: E66.3 Overweight (principal)

== ENCOUNTER → 2023-03-30 11:46 | Outpatient (BNVA) | payer OTHER, SELFPAY | PROVIDERS: PCP Internal Medicine; Visit Provider Dietitian, Registered | DX: E66.3 Overweight (principal); Z98.84 Bariatric surgery status; Z71.3 Dietary counseling and surveillance | CPT/HCPCS: 97803 ==

== ENCOUNTER 2023-06-07 10:12 | Outpatient (AMB) | payer OTHER, SELFPAY ==
--- NOTE | 2023-06-07 10:02 | A.OFFVIS_ITS ---
Intake VS Expanded 06/07/23 10:06 Height 5 ft 7 in Weight 175 lb BMI 27.4 Intake Visit Reasons: (TELEPHONE) PO LSG 06/01/22 Allergies shellfish derived Allergy (Mild, Verified 11/22/22 10:02) HIVES Medication List - Last Reconciled 06/07/23 by ABRAHAM Garcia clotrimazole 1% 1 appl topical BID [IUD 1 dose vaginal USEASDIRECTD] HPI HPI Comments History of Present Illness Details This?is a?32?yo female who is s/p LSG 06/01/2022. Presents for 1 year post op visit. Weight at last visit on 03/30/2023 was 171 pounds, weight today is 175 pounds, representing a 4 pound weight gain with a BMI today of [].? No complaints of nausea, emesis, abdominal pain or reflux, or constipation. Present meal plan includes: 8am? eggs and peppers or ricotta cheese or mongolian yogurt with fruit 11am chicken and veg 2-4pm [employer] dinner 2-3oz protein, 2oz vegetable, occasionally some sweet potato when able to comfortable fit takes MVI Exercise: 5x per week 45 min-1 hour treadmill, plus a class one other day. Plus added weight training 25-30 minutes daily. Plus homework on the spin bike has increased her running and had a goal to run 50 miles in May, was able to accomplish that goal already Excess skin of arms and abdomen have been bothering her. Somewhat in the legs but less so right now. She is unsure of wanting to pursue panniculectomy right now as she may want to have children in the future. Regarding arms, she is experiencing chafing/rashes of upper arms which have not completely resolved with topical Rx treatment. These rashes are painful and uncomfortable. Has to wear long sleeves to cover arms to prevent chafing. She has noticed increasing irritation with walking and running when her arms move, which makes these activities difficult. Did the patient ever have any of these conditions and are they resolved or still being treated? GERD: never SONNY:? never DM:? never HTN:? was borderline before surgery, BP fine now Hyperlipidemia:?never Post op complications:? none PFSH Medical History Arthritis Morbid obesity Surgical History No pertinent past surgical history Family History Mother Diabetes Thyroid disease Father Hypertension Sister Hypertension Thyroid disease PCOS (polycystic ovarian syndrome) Social History Are you a primary lawn care professional to a significant other at home: No Do you presently have visiting nurse or other home services: No Alcohol intake: former Patient Tobacco Use Status: Never used Tobacco Second Hand Smoke Exposure: No service: No Physical Exam Vital Signs: BMI result Body Mass Index 27.4 Assessment & Plan Assessment & Plan (1) Overweight: Code(s): E66.3 - Overweight (2) Status post sleeve gastrectomy: Code(s): Z90.3 - Acquired absence of stomach [part of] (3) Excess skin: Code(s): L98.7 - Excessive and redundant skin and subcutaneous tissue Plan Pt with adequate meal plan and exercise regimen. Congratulated her on increasing exercise and setting goals. Labs ordered. Excess skin of arms is causing painful chafing refractory to topical treatment. RTC 3 months to monitor problems of excess skin. Patient is overweight and with issues of excess skin and is not considered stable at this time. I spent a total of 30 minutes reviewing/updating records, examining the patient and counseling the patient on weight management as detailed above. Orders: Orders Complete Blood Count Auto Diff Today Z90.3 - Acquired absence of stomach [part of] Ferritin Today Z90.3 - Acquired absence of stomach [part of] Vitamin D 25-OH Total Today Z90.3 - Acquired absence of stomach [part of] Insulin Today Z90.3 - Acquired absence of stomach [part of] Hemoglobin A1c Today Z90.3 - Acquired absence of stomach [part of] Lipid Panel Today Z90.3 - Acquired absence of stomach [part of] IRON PROFILE Today Z90.3 - Acquired absence of stomach [part of] Comprehensive Met. Panel Today Z90.3 - Acquired absence of stomach [part of] Vitamin B12 and Folate Today Z90.3 - Acquired absence of stomach [part of] Zinc Today Z90.3 - Acquired absence of stomach [part of] C Reactive Protein Today Z90.3 - Acquired absence of stomach [part of] Vitamin B1 Today Z90.3 - Acquired absence of stomach [part of] Vitamin A Today Z90.3 - Acquired absence of stomach [part of] TSH reflex Free T4 Today Z90.3 - Acquired absence of stomach [part of] Telehealth Telehealth Location of provider rendering services: practice address Location of patient: address on file Patient Identification confirmed using: Name, : Yes Telehealth method: voice only Patient verbally consented to treatment: Yes Patient verbally consented to billing insurance company: Yes Patient informed of any privacy concerns related to visit: Yes Minutes spent on Phone/Video with Pt.: 12 Coding Level of Care Code Tele Est Pt Level 4 (39378) Diagnoses Overweight E66.3 Status post sleeve gastrectomy Z90.3 Excess skin L98.7
[2023-06-07 10:06] VITALS: BMI 27.4
== END 2023-06-07 10:30 | disposition home or self-care (01) ==
LOC: HO.HBS 10:12
PROVIDERS: PCP Internal Medicine; Visit Provider Physician Assistant Surgical
DX: E66.3 Overweight (principal); Z68.27 Body mass index [BMI] 27.0-27.9, adult; Z90.3 Acquired absence of stomach [part of]; L98.7 Excessive and redundant skin and subcutaneous tissue
CPT/HCPCS: 99441

== ENCOUNTER → 2023-06-07 10:12 | Outpatient (BNVA) | payer OTHER, SELFPAY | PROVIDERS: PCP Internal Medicine; Visit Provider Physician Assistant Surgical ==